=== PATIENT | female | born 1980 | race Two or more races ===

== ENCOUNTER 2017-05-12 22:07 | Emergency (ER) | payer MEDICAID ==
[~2017-05-12] VITALS: Ht 167.6 cm; Wt 40.8 kg
[~2017-05-12 22:07] MED LIST: PRENATAL VITAMINS
[2017-05-13] VITALS: BP 148/96
== END 2017-05-13 00:51 | disposition home or self-care (01) ==
LOC: EDBD 22:07 → ER 22:16
DX: S00.93XA Contusion of unspecified part of head, initial encounter (principal); V49.19XA Passenger injured in collision with other motor vehicles in nontraffic accident, initial encounter; Y93.89 Activity, other specified; Y99.8 Other external cause status; Y92.410 Unspecified street and highway as the place of occurrence of the external cause
CPT/HCPCS: 70450